=== PATIENT | male | born 1970 | race Hispanic/Latino ===

== ENCOUNTER 2020-05-07 16:06 | Emergency (ER) | payer BC ==
[~2020-05-07] VITALS: Ht 180.3 cm; Wt 108.9 kg
[2020-05-07] MEDS ORDERED: ACETAMINOPHEN 325 MG TAB ONE (16:28)
[2020-05-07] MEDS ORDERED: ACETAMINOPHEN 325 MG TAB PO ONE (16:30)
== END 2020-05-07 16:31 | disposition home or self-care (01) ==
LOC: ER 16:31
DX: U07.1 COVID-19 (principal); R50.9 Fever, unspecified; R06.02 Shortness of breath; R11.0 Nausea; R53.81 Other malaise
CPT/HCPCS: 99283

== ENCOUNTER 2020-05-08 15:27 | Emergency (ER) | payer BC ==
[~2020-05-08] VITALS: Ht 180.3 cm; Wt 108.9 kg
== END 2020-05-08 17:26 | disposition home or self-care (01) ==
LOC: ER 16:09
DX: U07.1 COVID-19 (principal); K62.89 Other specified diseases of anus and rectum
CPT/HCPCS: 99283